=== PATIENT | female | born 1960 | race Caucasian/White ===

== ENCOUNTER 2018-03-05 19:58 | Emergency (ER) | payer OTHER ==
[~2018-03-05] VITALS: Ht 154.9 cm; Wt 83.0 kg
[2018-03-05] MEDS ORDERED: TENORMIN25 MG (20:18)
[2018-03-05] MEDS ORDERED: ATACAND4 MG (20:18)
[2018-03-05] MEDS ORDERED: PNEU16DI2 (20:18)
[2018-03-05] MEDS ORDERED: WELLBUTRIN SR100 MG (20:19)
[2018-03-05] MEDS ORDERED: TRAZODONE HCL50 MG (20:20)
[2018-03-05] MEDS ORDERED: PROSOM (20:20)
[2018-03-05] MEDS ORDERED: VALIUM (20:20)
[2018-03-06] MEDS ORDERED: KETO10TA2 PO (00:34)
== END 2018-03-06 00:53 | disposition home or self-care (01) ==
LOC: ER 19:58
DX: S83.511A Sprain of anterior cruciate ligament of right knee, initial encounter (principal); X50.9XXA Other and unspecified overexertion or strenuous movements or postures, initial encounter; Y93.89 Activity, other specified; Y92.238 Other place in hospital as the place of occurrence of the external cause; Y99.8 Other external cause status